=== PATIENT | male | born 1965 | race Caucasian/White ===

== ENCOUNTER 2019-03-12 10:51 | Emergency (ER) | payer OTHER ==
[~2019-03-12] VITALS: Ht 170.2 cm; Wt 78.5 kg
[~2019-03-12 10:51] MED LIST: METR500S14 PO
[2019-03-12 11:02] VITALS: BP 110/66
--- NOTE | 2019-03-12 11:07 | NUR ---
PATIENT AMBULATED TO BED 7
--- NOTE | 2019-03-12 11:10 | NUR ---
53 Y/O MALE PT PRESENTS TO ER FOR GENERALIZED WEAKNESS AND SHORTNESS OF BREATH SINCE TODAY. PT WAS RECENTLY DIAGNOSED WITH LIVER CANCER AND HAD A BIOPSY DONE YESTERDAY. PT DENIES ANY PAIN, PAIN LEVEL 0/10. DENIES N/V/D OR ABDOMINAL TENDERNESS. PT O2 SATURATION 88% ON RA. PT PLACED IN HIGH FOWLERS POSITION ON 4L OF O2 VIA NC. ALLERGIES: PENICILLINS. MED HX: LIVER CANCER. SAFETY MEASURES IN PLACE. ERMD AT BEDSIDE.
[2019-03-12 11:34] LABS: BASOPHILS % (AUTO) 0.4 % (0.0-2.0); EOSINOPHILS # (AUTO) 0.1 K/uL (0-0.4); EOSINOPHILS % (AUTO) 1.7 % (0.0-4.0); HEMATOCRIT 47.1 % (36-52); HEMOGLOBIN 15.2 g/dL (12.0-18.0); LYMPHOCYTES # (AUTO) 1.4 K/uL (2.0-11.5); LYMPHOCYTES % (AUTO) 18.8 % (20.5-51.1); MEAN CORPUSCULAR HEMOGLOBIN 29 pg (27-31); MEAN CORPUSCULAR HGB CONC 32 g/dL (33-37); MEAN CORPUSCULAR VOLUME 90.9 fL (80-94); MONOCYTES # (AUTO) 0.5 K/uL (0.8-1.0); MONOCYTES % (AUTO) 6.8 % (1.7-9.3); NEUTROPHILS # (AUTO) 5.3 K/uL (1.8-7.7); NEUTROPHILS % (AUTO) 72.3 % (42.2-75.2); PLATELET COUNT (AUTO) 294 K/uL (140-450); RED BLOOD CELL COUNT(AUTO) 5.18 MIL/uL (4.20-6.10); RED CELL DISTRIBUTION WIDTH 14.1 % (11.6-13.7); WHITE BLOOD COUNT (AUTO) 7.3 K/uL (4.8-10.8)
--- NOTE | 2019-03-12 11:45 | NUR ---
XRAY AT BEDSIDE
[2019-03-12 12:09] LABS: ALBUMIN 3.6 g/dL (3.4-5.0); CARBON DIOXIDE 25.6 mmol/L (21-32); CREATININE 1.4 mg/dL (0.7-1.3); POTASSIUM 3.6 mmol/L (3.5-5.1)
[2019-03-12 12:33] LABS: PROTHROMBIN TIME 10.9 secs (10.8-13.4)
[2019-03-12] MEDS ORDERED: HEPARIN PER PHARMACY MC ONE (13:30)
[2019-03-12] MEDS ORDERED: hePARIN / DEXT 5% PREMIX 250 ML IV ONE (13:30)
[2019-03-12] MEDS ORDERED: hePARIN / DEXT 5% PREMIX 250 ML IV SCH (13:40)
--- NOTE | 2019-03-12 14:02 | NUR ---
TRANSFER OF CARE AND REPORT GIVEN TO MAMADOU OCHOA
--- NOTE | 2019-03-12 14:39 | NUR ---
Pt resting comfortably in bed with visitor at bedside. VSS. IV heparin infusing, pt tolerating well. Dr. Vega speaking with Joaquín at this time.
--- NOTE | 2019-03-12 15:01 | NUR ---
PT LAYING SEMI QUINTERO IN BED, EXWIFE AT BEDSIDE, SPO2 94% ON 3L NC, RR 24 EVEN AND UNLABORED. REPORTS MILD SOB AND TOLERABLE BL CHEST PRESSURE. ALL NEEDS MET AT THIS TIME.
--- NOTE | 2019-03-12 16:18 | NUR ---
PT NOW LAYING SEMI QUINTERO IN BED, SON AT BEDSIDE, SPO2 94% ON 3L NC, RR 22 EVEN AND MILDLY LABORED AFTER AMBULATING TO RESTROOM. REPORTS MILD SOB AND TOLERABLE BL CHEST PRESSURE. ALL NEEDS MET AT THIS TIME.
[2019-03-12] MEDS ORDERED: ONDANSETRON 4 MG/2 ML VIAL IVP ONE (17:45)
[2019-03-12] MEDS ORDERED: MORPHINE SULFATE 4 MG/ML SYR IVP ONE (17:45)
--- NOTE | 2019-03-12 18:00 | NUR ---
PT LAYING SEMI QUINTERO IN BED, SONS AT BEDSIDE, SPO2 93% ON 3L NC, RR 22 EVEN AND MILDLY LABORED. REPORTS MILD SOB AND BL CHEST PRESSURE. ADMINISTERED MORPHINE 2MG IVP AND ZOFRAN 4MG IVP WITH EDUCATION, PT VERBALIZED UNDERSTANDING, TOLERATED MEDS WELL. ALL NEEDS MET AT THIS TIME.
--- NOTE | 2019-03-12 19:16 | NUR ---
RECEIVED REPORT FROM MAMADOU THOMAS. ASSUMED CARE AT THIS TIME. PT SEATED IN SEMI-FOWLERS POSITION. VSS AT THIS TIME. WILL CONTINUE TO MONITOR.
--- NOTE | 2019-03-12 20:05 | NUR ---
PT O2 SATURATION AT 88-89% ON 3L O2. O2 INCREASED TO 5L O2 VIA NASAL CANNULA. O2 SATURATION AT 93%. PT HAS NO C/O SOB OR PAIN AT THIS TIME.
--- NOTE | 2019-03-12 20:40 | NUR ---
CALLED MAMADOU CAMEJO AT [facility] TO GIVE REPORT. TRANSPORT ETA [id number].
[2019-03-12 21:23] VITALS: BP 94/73
--- NOTE | 2019-03-12 21:23 | NUR ---
[facility] TRANSPORT AT BEDSIDE. SPO2 93% ON 5L O2 NC, RR 20 EVEN AND UNLABORED. PT REPORTS MILD BUT TOLERABLE SOB, DENIES PAIN AT THIS TIME. CONDITION STABLE. PT TO BE TRANSFERRED TO [facility], ROOM 220.
--- NOTE | 2019-03-12 21:37 | NUR ---
CALLED MAMADOU CAMEJO TO INFORM HIM THAT PT IS EN ROUTE.
== END 2019-03-12 21:41 | disposition short-term general hospital (02) ==
LOC: MED 10:51
DX: I26.99 Other pulmonary embolism without acute cor pulmonale (principal); K21.9 Gastro-esophageal reflux disease without esophagitis; Z85.038 Personal history of other malignant neoplasm of large intestine; Z85.05 Personal history of malignant neoplasm of liver; Z79.899 Other long term (current) drug therapy; Z88.0 Allergy status to penicillin
CPT/HCPCS: 36415; 71045; 71275; 80053; 83880; 84484; 85025; 85610; 85730; 96365; 96366; 96375; 96376; 99291; J1644; J2270; J2405; Q0092; Q9967